=== PATIENT | male | born 1935 | race African-American/Black ===

== ENCOUNTER 2021-01-22 05:14 | Inpatient (IN) | payer BC ==
[~2021-01-22] VITALS: Ht 190.5 cm; Wt 68.1 kg
[2021-01-22 06:27] LABS: BASOPHILS % 0.4 % (0.0-2.0); EOSINOPHILS % 0.8 % (0.0-5.0); HEMATOCRIT. 27.2 % (42.0-52.0); HEMOGLOBIN. 9.2 g/dL (14.0-18.0); LYMPHOCYTES % 7.8 % (20.0-50.0); MEAN CORPUSCULAR HEMOGLOBIN 28.2 pg (28.0-32.0); MEAN CORPUSCULAR VOLUME 83.1 fL (80.0-94.0); MEAN PLATELET VOLUME 7.9 fl (7.4-10.4); MONOCYTES % 8.9 % (2.0-8.0); NEUTROPHILS % 82.1 % (40.0-76.0); PLATELET 205 x1000/uL (130-400); RED BLOOD CELL COUNT 3.27 mill/uL (4.7-6.1)
[2021-01-22 06:36] LABS: CHLORIDE 103 mEq/L (98-107)
[2021-01-22 06:42] LABS: ETHANOL BLOOD < 10 mg/dL
[2021-01-22] MEDS ORDERED: ASPIRIN 325MG EC TABLET PO ONE (09:45)
[2021-01-22] MEDS ORDERED: IPRATROPIUM/ALBUTEROL 0.5-3(2.5)MG/3ML NEB NEB PRN (10:30)
[2021-01-22] MEDS ORDERED: ACETAMINOPHEN 325MG TABLET PO PRN ×2 (10:30)
[2021-01-22] MEDS ORDERED: TRAMADOL 50MG TABLET PO PRN (10:30)
[2021-01-22] MEDS ORDERED: DOCUSATE SODIUM 100MG CAPSULE PO PRN (10:30)
[2021-01-22] MEDS ORDERED: CLONIDINE 0.1MG TABLET PO PRN (10:30)
[2021-01-22] MEDS ORDERED: NITROGLYCERIN 0.4MG TABLET SL SL PRN (10:30)
[2021-01-22] MEDS ORDERED: ZOLPIDEM TARTRATE 5MG TABLET PO PRN (10:30)
[2021-01-22] MEDS ORDERED: MAGNESIUM/ALUMINUM HYDROXIDE/SIMETHICONE 30ML UDC PO PRN (10:30)
[2021-01-22] MEDS ORDERED: GUAIFENESIN 200MG/10ML SUGAR FREE UDC PO PRN (10:30)
[2021-01-22] MEDS ORDERED: ONDANSETRON HCL 4MG/2ML INJ IV PRN (10:30)
[2021-01-22] MEDS: ASCORBIC ACID 500 MG TABLET PO SCH ×2 (11:07→21:11)
[2021-01-22] MEDS: ENOXAPARIN 30MG/0.3ML SYR SUBCUT SCH (11:07)
[2021-01-22] MEDS: FUROSEMIDE 40MG/4ML VIAL IVP SCH ×2 (11:08→17:11)
[2021-01-22] MEDS: METOPROLOL TARTRATE 25MG TABLET PO SCH ×2 (11:08→21:11)
[2021-01-22] MEDS: FAMOTIDINE 20MG TABLET PO SCH (11:09)
[2021-01-22 13:15] VITALS: BP 132/63
[2021-01-22] MEDS ORDERED: BICA50TA7 MT (13:46)
[2021-01-22] MEDS ORDERED: TERA1CAP7 MT (13:46)
[2021-01-22] MEDS ORDERED: FINA1TAB18 MT (13:46)
[2021-01-22] MEDS ORDERED: ASPI-1497 MT (13:46)
[2021-01-22] MEDS ORDERED: AMLO10TA80 MT (13:46)
[2021-01-22] MEDS ORDERED: LEUP3.75 IM (13:46)
[2021-01-22] MEDS: CHOLECALCIFEROL (D3) 1000 UNIT TABLET PO SCH (14:15)
[2021-01-22] MEDS: TAMSULOSIN HCL 0.4MG SR CAPSULE PO SCH (14:16)
[2021-01-22 16:00] VITALS: BP 133/72
[2021-01-22 16:23] LABS: CREATINE KINASE MB FRACTION 13.7 ng/mL (0.5-3.6)
[2021-01-22 16:32] LABS: FOLIC ACID (FOLATE) SERUM 11.7 ng/mL (>5.38)
[2021-01-22 16:34] LABS: CREATINE KINASE 1078 IU/L (39-308)
[2021-01-22] MEDS: DUTASTERIDE 0.5MG CAPSULE PO SCH (17:10)
[2021-01-22 20:00] VITALS: BP 138/71
[2021-01-23] VITALS: BP 134/72
[2021-01-23 00:53] LABS: CREATINE KINASE 1646 IU/L (39-308)
[2021-01-23 04:00] VITALS: BP 137/67
[2021-01-23 06:42] LABS: MEAN CORPUSCULAR HEMOGLOBIN 27.8 pg (28.0-32.0); MEAN CORPUSCULAR VOLUME 83.7 fL (80.0-94.0); MEAN PLATELET VOLUME 8.2 fl (7.4-10.4); PLATELET 252 x1000/uL (130-400); RED BLOOD CELL COUNT 4.02 mill/uL (4.7-6.1); RED CELL DISTRIBUTION WIDTH 14.7 % (11.6-14.6)
[2021-01-23 06:52] LABS: CHLORIDE 101 mEq/L (98-107)
[2021-01-23] MEDS: FUROSEMIDE 40MG/4ML VIAL IVP SCH ×2 (06:54→18:02)
[2021-01-23 07:09] LABS: PHOSPHORUS 5.3 mg/dL (2.5-4.9)
[2021-01-23 08:00] VITALS: BP 120/60
[2021-01-23 08:38] LABS: HEMATOCRIT. 33.7 % (42.0-52.0); HEMOGLOBIN. 11.2 g/dL (14.0-18.0)
[2021-01-23] MEDS: ENOXAPARIN 30MG/0.3ML SYR SUBCUT SCH (09:55)
[2021-01-23] MEDS: FAMOTIDINE 20MG TABLET PO SCH (09:55)
[2021-01-23] MEDS: ASCORBIC ACID 500 MG TABLET PO SCH ×2 (09:55→21:18)
[2021-01-23] MEDS: DUTASTERIDE 0.5MG CAPSULE PO SCH (09:55)
[2021-01-23] MEDS: CHOLECALCIFEROL (D3) 1000 UNIT TABLET PO SCH (09:55)
[2021-01-23] MEDS: ZINC SULFATE 220 MG ( 50 ) CAPSULE PO SCH (09:55)
[2021-01-23] MEDS: TAMSULOSIN HCL 0.4MG SR CAPSULE PO SCH (09:56)
[2021-01-23] MEDS: METOPROLOL TARTRATE 25MG TABLET PO SCH ×2 (09:56→21:18)
[2021-01-23 12:00] VITALS: BP 132/64
[2021-01-23 16:00] VITALS: BP 130/70
[2021-01-23 19:05] LABS: PLATELET ESTIMATE NORMAL
[2021-01-23 20:00] VITALS: BP 127/68
[2021-01-24] VITALS: BP 134/83
[2021-01-24 03:59] LABS: *AMPHETAMINES SCREEN URINE NEGATIVE (NEGATIVE); *BARBITURATES SCREEN URINE NEGATIVE (NEGATIVE); *BENZODIAZEPINES SCREEN URINE NEGATIVE (NEGATIVE); *COCAINE SCREEN URINE NEGATIVE (NEGATIVE); METHADONE URINE SCREEN NEGATIVE (NEGATIVE)
[2021-01-24 04:00] VITALS: BP 137/71
[2021-01-24 04:01] LABS: CANNABINOID URINE SCREEN PRESUMTIVE POSITIVE (NEGATIVE); OPIATES URINE SCREEN NEGATIVE (NEGATIVE); PHENCYCLIDINE URINE SCREEN NEGATIVE (NEGATIVE)
[2021-01-24] MEDS: FUROSEMIDE 40MG/4ML VIAL IVP SCH ×2 (06:04→18:00)
[2021-01-24 08:00] VITALS: BP 123/66
[2021-01-24 08:15] LABS: BASOPHILS % 0.6 % (0.0-2.0); HEMATOCRIT. 36.2 % (42.0-52.0); LYMPHOCYTES % 13.7 % (20.0-50.0); MEAN CORPUSCULAR HEMOGLOBIN 27.9 pg (28.0-32.0); MEAN PLATELET VOLUME 8.4 fl (7.4-10.4); NEUTROPHILS % 70.7 % (40.0-76.0); PLATELET 255 x1000/uL (130-400); RED CELL DISTRIBUTION WIDTH 14.9 % (11.6-14.6)
[2021-01-24 08:33] LABS: PHOSPHORUS 5.2 mg/dL (2.5-4.9)
[2021-01-24] MEDS: METOPROLOL TARTRATE 25MG TABLET PO SCH ×2 (09:00→20:50)
[2021-01-24] MEDS: ENOXAPARIN 30MG/0.3ML SYR SUBCUT SCH (09:17)
[2021-01-24] MEDS: FAMOTIDINE 20MG TABLET PO SCH (09:18)
[2021-01-24] MEDS: ZINC SULFATE 220 MG ( 50 ) CAPSULE PO SCH (09:18)
[2021-01-24] MEDS: ASCORBIC ACID 500 MG TABLET PO SCH ×2 (09:18→20:50)
[2021-01-24] MEDS: CHOLECALCIFEROL (D3) 1000 UNIT TABLET PO SCH (09:18)
[2021-01-24] MEDS: TAMSULOSIN HCL 0.4MG SR CAPSULE PO SCH (09:18)
[2021-01-24] MEDS: DUTASTERIDE 0.5MG CAPSULE PO SCH (09:19)
[2021-01-24] MEDS ORDERED: POTASSIUM CHLORIDE 20MEQ TABLET SR PO SCH (10:45)
[2021-01-24] MEDS ORDERED: POTASSIUM CHLORIDE 20MEQ TABLET SR PO ONE (11:00)
[2021-01-24 12:00] VITALS: BP 117/68
[2021-01-24 16:00] VITALS: BP 120/59
[2021-01-24 20:00] VITALS: BP 108/59
[2021-01-25] VITALS: BP 107/65
[2021-01-25 04:00] VITALS: BP 110/62
[2021-01-25] MEDS: FUROSEMIDE 40MG/4ML VIAL IVP SCH (06:00)
[2021-01-25 08:00] VITALS: BP 148/76
[2021-01-25 08:05] LABS: BASOPHILS % 0.4 % (0.0-2.0); EOSINOPHILS % 3.1 % (0.0-5.0); HEMATOCRIT. 34.7 % (42.0-52.0); HEMOGLOBIN. 11.5 g/dL (14.0-18.0); LYMPHOCYTES % 15.2 % (20.0-50.0); MEAN CORPUSCULAR HEMOGLOBIN 27.7 pg (28.0-32.0); MEAN CORPUSCULAR VOLUME 83.7 fL (80.0-94.0); MEAN PLATELET VOLUME 8.2 fl (7.4-10.4); MONOCYTES % 14.4 % (2.0-8.0); NEUTROPHILS % 66.9 % (40.0-76.0); PLATELET 257 x1000/uL (130-400); RED BLOOD CELL COUNT 4.14 mill/uL (4.7-6.1); RED CELL DISTRIBUTION WIDTH 14.8 % (11.6-14.6)
[2021-01-25 08:29] LABS: PHOSPHORUS 4.2 mg/dL (2.5-4.9)
[2021-01-25] MEDS: METOPROLOL TARTRATE 25MG TABLET PO SCH (09:18)
[2021-01-25] MEDS: TAMSULOSIN HCL 0.4MG SR CAPSULE PO SCH (09:18)
[2021-01-25] MEDS: DUTASTERIDE 0.5MG CAPSULE PO SCH (09:18)
[2021-01-25] MEDS: ZINC SULFATE 220 MG ( 50 ) CAPSULE PO SCH (09:18)
[2021-01-25] MEDS: FAMOTIDINE 20MG TABLET PO SCH (09:18)
[2021-01-25] MEDS: ASCORBIC ACID 500 MG TABLET PO SCH (09:18)
[2021-01-25] MEDS: CHOLECALCIFEROL (D3) 1000 UNIT TABLET PO SCH (09:18)
[2021-01-25] MEDS: ENOXAPARIN 30MG/0.3ML SYR SUBCUT SCH (11:07)
[2021-01-25 11:19] VITALS: BP 148/76
[2021-01-25 12:00] VITALS: BP 140/79
== END 2021-01-25 13:32 | disposition home or self-care (01) | DRG 291 ==
LOC: ER 05:14 → 7EST 09:44 → SUPCPDRO 10:28 → ENRESERV 11:29
PROVIDERS: ADMIT Internal Medicine; ATTEND Internal Medicine
DX: I13.0 Hypertensive heart and chronic kidney disease with heart failure and stage 1 through stage 4 chronic kidney disease, or unspecified chronic kidney disease (principal); I50.33 Acute on chronic diastolic (congestive) heart failure; N17.0 Acute kidney failure with tubular necrosis; E87.1 Hypo-osmolality and hyponatremia; N13.8 Other obstructive and reflux uropathy; N13.30 Unspecified hydronephrosis; F12.90 Cannabis use, unspecified, uncomplicated; N18.9 Chronic kidney disease, unspecified; J44.9 Chronic obstructive pulmonary disease, unspecified; N32.0 Bladder-neck obstruction; N40.0 Benign prostatic hyperplasia without lower urinary tract symptoms; Z82.49 Family history of ischemic heart disease and other diseases of the circulatory system; Z85.46 Personal history of malignant neoplasm of prostate; Z90.79 Acquired absence of other genital organ(s); Z95.810 Presence of automatic (implantable) cardiac defibrillator; D63.8 Anemia in other chronic diseases classified elsewhere
CPT/HCPCS: 36415; 71045; 76770; 80048; 80053; 80061; 80305; 80320; 82550; 82553; 82607; 82746; 83036; 83540; 83550; 83735; 83880; 84100; 84153; 84484; 85025; 93005; 93306; 93970; 99285; J1650; J1940; G0103; G0480

== ENCOUNTER 2021-03-04 07:12 | Emergency (ER) | payer BC ==
[~2021-03-04] VITALS: Ht 172.7 cm; Wt 90.0 kg
[~2021-03-04 07:12] MED LIST: AMLO10TA80 MT; ASPI-1497 MT; BICA50TA7 MT; FINA1TAB18 MT; LEUP3.75 IM; TERA1CAP7 MT
[2021-03-04 08:46] LABS: BASOPHILS % 0.5 % (0.0-2.0); EOSINOPHILS % 0.5 % (0.0-5.0); HEMATOCRIT. 27.1 % (42.0-52.0); HEMOGLOBIN. 9.1 g/dL (14.0-18.0); LYMPHOCYTES % 8.5 % (20.0-50.0); MEAN CORPUSCULAR HEMOGLOBIN 27.9 pg (28.0-32.0); MEAN CORPUSCULAR VOLUME 82.6 fL (80.0-94.0); MEAN PLATELET VOLUME 7.2 fl (7.4-10.4); MONOCYTES % 10.7 % (2.0-8.0); NEUTROPHILS % 79.8 % (40.0-76.0); PLATELET 293 x1000/uL (130-400); RED BLOOD CELL COUNT 3.28 mill/uL (4.7-6.1); RED CELL DISTRIBUTION WIDTH 15.1 % (11.6-14.6)
[2021-03-04 08:47] LABS: CHLORIDE 101 mEq/L (98-107)
[2021-03-04] MEDS ORDERED: FUROSEMIDE 100MG/10ML VIAL IVP ONE (09:15)
[2021-03-04] MEDS ORDERED: LEVOFLOXACIN 250MG PREMIX 50 ML IV ONE (10:30)
[2021-03-04 13:30] VITALS: BP 150/68
[2021-03-04 13:51] LABS: CLARITY URINE TURBID (CLEAR); KETONES URINE NEGATIVE (NEGATIVE); LEUKOCYTE ESTERASE URINE 3+ (NEGATIVE); NITRITE URINE NEGATIVE (NEGATIVE); OCCULT BLOOD URINE 2+ (NEGATIVE); PROTEIN URINE 3+ (NEGATIVE); UROBILINOGEN URINE 0.2 E.U./dL (0.2-1.0)
[2021-03-04 13:53] LABS: COLOR URINE PALE YELLOW (YELLOW)
== END 2021-03-04 15:28 | disposition short-term general hospital (02) ==
LOC: ER 07:12 → CANBEDREQ 15:50
DX: I13.0 Hypertensive heart and chronic kidney disease with heart failure and stage 1 through stage 4 chronic kidney disease, or unspecified chronic kidney disease (principal); I50.9 Heart failure, unspecified; J18.9 Pneumonia, unspecified organism; N18.9 Chronic kidney disease, unspecified; D64.9 Anemia, unspecified; Z95.0 Presence of cardiac pacemaker
CPT/HCPCS: 36415; 71045; 80053; 81003; 83605; 83880; 84484; 85025; 87040; 87086; 93005; 96365; 96375; 99285; J1940; J1956

== ENCOUNTER 2021-03-27 17:00 | Emergency (ER) | payer BC ==
[~2021-03-27] VITALS: Ht 188 cm; Wt 54.0 kg
[~2021-03-27 17:00] MED LIST changes: +TERA1CAP53 MT; -TERA1CAP7 MT
[2021-03-27] MEDS ORDERED: ONDANSETRON HCL 4MG/2ML INJ IV STA (17:21)
[2021-03-27] MEDS ORDERED: SODIUM CHLORIDE 0.9% 1,000 ML IV ONE (17:30)
[2021-03-27 18:53] LABS: HEMATOCRIT. 28.8 % (42.0-52.0); HEMOGLOBIN. 10.1 g/dL (14.0-18.0); MEAN CORPUSCULAR VOLUME 85.6 fL (80.0-94.0); MEAN PLATELET VOLUME 7.8 fl (7.4-10.4); PLATELET 273 x1000/uL (130-400); RED BLOOD CELL COUNT 3.36 mill/uL (4.7-6.1)
[2021-03-27 18:58] LABS: CHLORIDE 86 mEq/L (98-107)
[2021-03-27 19:40] LABS: PLATELET ESTIMATE NORMAL
[2021-03-27] MEDS ORDERED: SODIUM CHLORIDE 0.9% 1,000 ML IV SCH (20:15)
[2021-03-27] MEDS ORDERED: IOHEXOL-300 100 ML BOTTLE ONE (23:30)
[2021-03-28 01:11] VITALS: BP 138/75
== END 2021-03-28 01:19 | disposition short-term general hospital (02) ==
LOC: ER 17:00 → CANBEDREQ 03-28 01:47
DX: N17.9 Acute kidney failure, unspecified (principal); R53.1 Weakness; K56.609 Unspecified intestinal obstruction, unspecified as to partial versus complete obstruction; R41.0 Disorientation, unspecified; J98.2 Interstitial emphysema; S22.31XA Fracture of one rib, right side, initial encounter for closed fracture; Y07.499 Other family member, perpetrator of maltreatment and neglect; Y08.89XA Assault by other specified means, initial encounter; Y93.89 Activity, other specified; Y92.89 Other specified places as the place of occurrence of the external cause
CPT/HCPCS: 36415; 70450; 71045; 71260; 74177; 80053; 83605; 83690; 83880; 84484; 85025; 93005; 96361; 96374; 99285; J2405; J7030; Q9967

== ENCOUNTER 2022-10-08 12:31 | Emergency (ER) | payer OTHER ==
[~2022-10-08] VITALS: Ht 188 cm; Wt 72.7 kg
[2022-10-08 14:57] LABS: HEMOGLOBIN. 9.8 g/dL (14.0-18.0); MEAN CORPUSCULAR HEMOGLOBIN 28.2 pg (28.0-32.0); RED BLOOD CELL COUNT 3.49 mill/uL (4.7-6.1); RED CELL DISTRIBUTION WIDTH 13.7 % (11.6-14.6)
[2022-10-08 15:00] VITALS: BP 128/71
[2022-10-08 15:02] LABS: CHLORIDE 102 mEq/L (98-107)
[2022-10-08 15:04] LABS: INR 1.1; PARTIAL THROMBOPLASTIN TIME 23.1 sec (23.4-31.0); PROTHROMBIN TIME 11.8 sec (9.6-11.0)
[2022-10-08] MEDS ORDERED: SODIUM CHLORIDE 0.9% 500 ML IV ONE (16:00)
[2022-10-08 20:49] LABS: PLATELET ESTIMATE NORMAL
[2022-10-08 20:50] LABS: MEAN PLATELET VOLUME 7.8 fl (7.4-10.4); PLATELET 237 x1000/uL (130-400)
== END 2022-10-09 17:32 | disposition home or self-care (01) ==
LOC: ER 10-09 07:19
DX: N17.9 Acute kidney failure, unspecified (principal); R60.9 Edema, unspecified; I10 Essential (primary) hypertension; F12.10 Cannabis abuse, uncomplicated; R51.9 Headache, unspecified
CPT/HCPCS: 36415; 70450; 71045; 80053; 83880; 84484; 85025; 85610; 85730; 93005; 93970; 96360; 99285; J7040

== ENCOUNTER 2022-11-15 06:53 | Emergency (ER) | payer BC ==
[~2022-11-15] VITALS: Ht 188 cm; Wt 66.0 kg
[2022-11-15 07:28] VITALS: BP 100/69
[2022-11-15 08:19] LABS: CLARITY URINE CLEAR (CLEAR); COLOR URINE YELLOW (YELLOW); KETONES URINE TRACE (NEGATIVE); LEUKOCYTE ESTERASE URINE 1+ (NEGATIVE); NITRITE URINE NEGATIVE (NEGATIVE); OCCULT BLOOD URINE NEGATIVE (NEGATIVE); PH URINE 5.5 (4.5-8.0); PROTEIN URINE 1+ (NEGATIVE); SPECIFIC GRAVITY URINE 1.016 (1.005-1.030); UROBILINOGEN URINE 0.2 E.U./dL (0.2-1.0)
[2022-11-15 10:11] LABS: HEMATOCRIT. 27.8 % (42.0-52.0); HEMOGLOBIN. 9.4 g/dL (14.0-18.0); MEAN CORPUSCULAR HEMOGLOBIN 28.7 pg (28.0-32.0); MEAN CORPUSCULAR VOLUME 85.4 fL (80.0-94.0); MEAN PLATELET VOLUME 7.3 fl (7.4-10.4); PLATELET 265 x1000/uL (130-400); RED BLOOD CELL COUNT 3.26 mill/uL (4.7-6.1); RED CELL DISTRIBUTION WIDTH 14.9 % (11.6-14.6)
[2022-11-15 10:17] LABS: CHLORIDE 101 mEq/L (98-107)
[2022-11-15 10:39] LABS: PLATELET ESTIMATE NORMAL
== END 2022-11-15 11:17 | disposition home or self-care (01) ==
LOC: ER 06:53
DX: N17.9 Acute kidney failure, unspecified (principal); R31.9 Hematuria, unspecified; I10 Essential (primary) hypertension; F12.90 Cannabis use, unspecified, uncomplicated; Z79.82 Long term (current) use of aspirin
CPT/HCPCS: 36415; 80053; 81003; 85025; 99283

== ENCOUNTER 2023-01-28 05:58 | Emergency (ER) | payer BC ==
[~2023-01-28] VITALS: Ht 190.5 cm; Wt 67.0 kg
[2023-01-28 06:00] VITALS: O2SAT 100
[2023-01-28 07:25] LABS: HEMATOCRIT. 33.9 % (42.0-52.0); HEMOGLOBIN. 11.1 g/dL (14.0-18.0); MEAN CORPUSCULAR HGB CONC 32.7 g/dL (31.0-37.0); MEAN CORPUSCULAR VOLUME 85.4 fL (80.0-94.0); MEAN PLATELET VOLUME 8.4 fl (7.4-10.4); PLATELET 256 x1000/uL (130-400); RED BLOOD CELL COUNT 3.97 mill/uL (4.7-6.1); RED CELL DISTRIBUTION WIDTH 18.8 % (11.6-14.6); WHITE BLOOD COUNT 10.1 x1000/uL (4.5-11.0)
[2023-01-28 07:37] LABS: CHLORIDE 105 mEq/L (98-107); DIFFERENTIAL COMMENT 1; INDEX HEMOLYSI 3 (1-3); INDEX ICTERIC 1 (1-4); INDEX LIPEMIC 1 (1-3); POTASSIUM 4.9 mEq/L (3.5-5.1); SODIUM 136 mEq/L (136-145)
[2023-01-28 07:46] LABS: ALANINE AMINOTRANSFERASE 53 IU/L (13-61); ALBUMIN 3.3 g/dL (3.4-5.0); ASPARTATE AMINOTRANSFERASE 207 IU/L (15-37); BILIRUBIN TOTAL 0.9 mg/dL (0.1-1.0); CALCIUM 12.1 mg/dL (8.5-10.1); CARBON DIOXIDE 21 mEq/L (21-32); CREATINE KINASE 286 IU/L (39-308); CREATININE 2.1 mg/dL (0.6-1.3); GLUCOSE 98 mg/dL (70-105); PROTEIN TOTAL 7.2 g/dL (6.0-8.3); UREA NITROGEN BLOOD 64 mg/dL (7-21)
[2023-01-28 08:40] LABS: CLARITY URINE TURBID (CLEAR); COLOR URINE YELLOW (YELLOW); GLUCOSE URINE NEGATIVE (NEGATIVE); KETONES URINE TRACE (NEGATIVE); LEUKOCYTE ESTERASE URINE 3+ (NEGATIVE); NITRITE URINE POSITIVE (NEGATIVE); OCCULT BLOOD URINE 3+ (NEGATIVE); PH URINE 5.5 (4.5-8.0); PROTEIN URINE 2+ (NEGATIVE); SPECIFIC GRAVITY URINE 1.016 (1.005-1.030); UROBILINOGEN URINE 0.2 E.U./dL (0.2-1.0)
[2023-01-28 08:55] LABS: PLATELET ESTIMATE NORMAL
[2023-01-28 09:00] LABS: BACTERIA URINE 4+; WBC URINE TNTC /hpf (0-2)
[2023-01-28 09:03] LABS: RBC URINE 15-25 /hpf (0-2); YEAST URINE NONE SEEN
[2023-01-28] MEDS ORDERED: CEFTRIAXONE 1GM PREMIX 50 ML IV ONE (10:15)
[2023-01-28 15:34] VITALS: BP 145/76; PULSE 74; RESP 20; TEMP 98.1
== END 2023-01-28 14:22 | disposition short-term general hospital (02) ==
LOC: ER 05:58
DX: N30.00 Acute cystitis without hematuria (principal); R26.2 Difficulty in walking, not elsewhere classified; I49.9 Cardiac arrhythmia, unspecified; R51.9 Headache, unspecified; Z20.822 Contact with and (suspected) exposure to COVID-19
CPT/HCPCS: 99285; 70450; 96365; 71045; 87426; 80053; 81003; 82550; 85025; 87086; 87186; 87077; 36415; 72131; 93005; J0696; C9803